=== PATIENT | male | born 1985 | race Two or more races ===

== ENCOUNTER 2017-07-28 22:32 | Emergency (ER) | payer SELFPAY ==
[~2017-07-28] VITALS: Ht 182.9 cm; Wt 110.0 kg
[2017-07-28] MEDS ORDERED: SODIUM CHLORIDE 0.9% 1,000 ML IV ONE (23:23)
[2017-07-28] MEDS ORDERED: IBUPROFEN 600MG TABLET PO ONE (23:30)
[2017-07-28] MEDS ORDERED: HYDROCODONE/ACETAMINOPHEN 5/325MG TABLET PO ONE (23:30)
[2017-07-28] MEDS ORDERED: BACITRACIN ZINC OINT UDPKT TOP ONE (23:30)
[2017-07-28] MEDS ORDERED: LIDOCAINE HCL 1%/EPI 1:200,000 30 ML VIAL MC ONE (23:30)
[2017-07-28] MEDS ORDERED: TETANUS, DIPHTHERIA, PERTUSSIS VAC/PF 0.5ML (>7YR OLD) IM ONE (23:30)
[2017-07-28] MEDS ORDERED: LIDOCAINE 1%/EPI 1:200,000 10 ML VIAL IJ NR (23:34)
[2017-07-28] MEDS ORDERED: LIDOCAINE HCL 1% 20ML VIAL (Pyxis) INJ MC ONE (23:45)
[2017-07-28 23:46] LABS: BASOPHILS % 0.9 % (0.0-2.0); EOSINOPHILS % 12.7 % (0.0-5.0); HEMOGLOBIN. 15.8 g/dL (14.0-18.0); LYMPHOCYTES % 26.6 % (20.0-50.0); MEAN CORPUSCULAR HEMOGLOBIN 34.2 pg (28.0-32.0); MEAN CORPUSCULAR VOLUME 97.6 fL (80.0-94.0); MEAN PLATELET VOLUME 8.9 fl (7.4-10.4); MONOCYTES % 9.2 % (2.0-8.0); NEUTROPHILS % 50.6 % (40.0-76.0); PLATELET 132 x1000/uL (130-400); RED BLOOD CELL COUNT 4.61 mill/uL (4.7-6.1); RED CELL DISTRIBUTION WIDTH 13.8 % (11.6-14.6)
[2017-07-29 00:08] LABS: CHLORIDE 106 mEq/L (98-107)
[2017-07-29 00:17] LABS: CARBON DIOXIDE 26 mEq/L (21-32); ETHANOL BLOOD 195 mg/dL
[2017-07-29] MEDS ORDERED: POTASSIUM CHLORIDE 20MEQ TABLET SR PO ONE (02:15)
[2017-07-29 05:56] VITALS: BP 128/79
== END 2017-07-29 05:55 | disposition home or self-care (01) ==
LOC: ER 22:32
DX: S01.01XA Laceration without foreign body of scalp, initial encounter (principal); S01.21XA Laceration without foreign body of nose, initial encounter; S01.511A Laceration without foreign body of lip, initial encounter; F10.129 Alcohol abuse with intoxication, unspecified; E87.6 Hypokalemia; Y90.6 Blood alcohol level of 120-199 mg/100 ml; Y00.XXXA Assault by blunt object, initial encounter; Y93.89 Activity, other specified; Y92.488 Other paved roadways as the place of occurrence of the external cause
CPT/HCPCS: 12016; 36415; 70450; 70486; 80053; 85025; 90471; 90715; 96360; 96361; 99285; G0482; J7030; Z7610

== ENCOUNTER 2017-08-03 09:03 | Emergency (ER) | payer SELFPAY ==
[~2017-08-03] VITALS: Ht 185.4 cm; Wt 123.0 kg
[2017-08-03 09:52] VITALS: BP 139/92
== END 2017-08-03 11:03 | disposition home or self-care (01) ==
LOC: ER 09:47
DX: Z48.02 Encounter for removal of sutures (principal)
CPT/HCPCS: 99281; Z7610